=== PATIENT | male | born 1975 | race Caucasian/White ===

== ENCOUNTER 2017-03-18 22:52 | Emergency (ER) | payer SELFPAY ==
[2017-03-18 22:58] VITALS: BP 150/97; PULSE 108; TEMP 98; BMI 27.3
--- NOTE | 2017-03-18 23:28 | PDOC ---
History of Present Illness - General History Source: Patient - History of Present Illness Initial Comments: 03/18/17 23:32 The patient is a 42 year old male, accompanied by , with no significant past medical history who presents to the emergency department with shortness of breath and chest pain just prior to arrival. The patient admits that he was smoking marijuana when his symptoms onset. He states that his symptoms are resolving. He denies any significant family history of cardiac or pulmonary problems. He denies any other significant family history. <Wilbur Paul - Last Filed: 03/18/17 23:32> - General History Source: Patient <Willy Parra - Last Filed: 03/19/17 00:50> - General Chief Complaint: Shortness of Breath Stated Complaint: CHEST PAIN Time Seen by Provider: 03/18/17 23:27 Past History <Wilbur Paul - Last Filed: 03/18/17 23:32> - Past Medical History COPD: No Other medical history: denies - Suicide/Smoking/Psychosocial Hx Smoking History: Current every day smoker Number of Cigarettes Smoked Daily: 10 Information on smoking cessation initiated: No Substance Use Type: Marijuana <BrijeshWilly garcia - Last Filed: 03/19/17 00:50> - Past Medical History Allergies/Adverse Reactions: Allergies Allergy/AdvReac Type Severity Reaction Status Date / Time No Known Allergies Allergy Verified 03/18/17 22:58 Review of Systems - Review of Systems Able to Perform ROS?: Yes Comments:: 03/18/17 23:33 CONSTITUTIONAL: Absent: fever, no chills, no fatigue EYES: Absent: visual changes ENT: Absent: ear pain, no sore throat CARDIOVASCULAR: (+) Chest pain Absent: no palpitations RESPIRATORY: (+) SOB Absent: cough GI: Absent: abdominal pain, no nausea, no vomiting, no constipation, no diarrhea GENITOURINARY: Absent: dysuria, no frequency, no hematuria MUSCULOSKELETAL: Absent: back pain, no arthralgia, no myalgia SKIN: Absent: rash <Wilbur Paul - Last Filed: 03/18/17 23:32> *Physical Exam - Vital Signs Last Vital Signs Temp Pulse Resp BP Pulse Ox 98 F 108 H 20 150/97 100 03/18/17 22:54 03/18/17 22:54 03/18/17 22:54 03/18/17 22:54 03/18/17 22:54 - Physical Exam Comments: 03/18/17 23:33 GENERAL: Well-appearing, well-nourished. No apparent distress. HEENT: Normocephalic, atraumatic. PERRL, EOM intact. CARDIOVASCULAR: Normal S1, S2. Regular rate and rhythm. PULMONARY: Decreased breath sounds bilaterally with scattered wheezing. ABDOMEN: Soft, non-distended, non-tender. EXTREMITIES: Normal ROM in all four extremities. No gross deformities. SKIN: Warm, dry. No rash NEUROLOGICAL: No focal neurological deficits. <Wilbur Paul - Last Filed: 03/18/17 23:32> - Vital Signs Last Vital Signs Temp Pulse Resp BP Pulse Ox 98 F 108 H 20 150/97 100 03/18/17 22:54 03/18/17 22:54 03/18/17 22:54 03/18/17 22:54 03/18/17 22:54 <Willy Parra - Last Filed: 03/19/17 00:50> Medical Decision Making - Medical Decision Making 03/18/17 23:49 Dr. Parra: The scribe's documentation has been prepared under my direction and personally reviewed by me in its entirery. I confirm that the note above accurately reflects all work, treatment, procedures, and medical decision making performed by me. patient feels better after 1 DuoNeb. patient will be discharged and referred to primary care and pulmonary as needed. <Willy Parra - Last Filed: 03/19/17 00:50> *DC/Admit/Observation/Transfer - Attestations Scribe Attestion: 03/18/17 23:33 Documentation prepared by Wilbur Paul, acting as medical economics consultant for Willy Parra DO. <Wilbur Paul - Last Filed: 03/18/17 23:32> - Discharge Dispostion Admit: No <Willy Parra - Last Filed: 03/19/17 00:50> Diagnosis at time of Disposition: Mild shortness of breath - Discharge Dispostion Disposition: HOME Condition at time of disposition: Improved - Referrals Referrals: René Ferrara [Non Staff, Medical] - Marc Caro MD [Staff Physician] - - Patient Instructions Printed Discharge Instructions: DI for Shortness of Breath Additional Instructions: avoid smoking as much as possible. Follow up with your doctor or the doctors referred to as needed
--- NOTE | 2017-03-19 10:38 | EKG ---
Test Reason : Blood Pressure : / mmHG Vent. Rate : 076 BPM Atrial Rate : 076 BPM P-R Int : 178 ms QRS Dur : 100 ms QT Int : 382 ms P-R-T Axes : 032 064 027 degrees QTc Int : 429 ms NORMAL SINUS RHYTHM NORMAL ECG NO PREVIOUS ECGS AVAILABLE Confirmed by PRAVIN CHAIREZ, RADHA ([id number]) on 03/19/2017 10:37:51 AM Referred By: Confirmed By:RADHA COSTELLO MD
== END 2017-03-18 23:59 | disposition home or self-care (01) ==
LOC: JER 22:52
DX: R06.02 Shortness of breath (principal); F12.10 Cannabis abuse, uncomplicated; F17.210 Nicotine dependence, cigarettes, uncomplicated
CPT/HCPCS: 93005; 93010; 99281-25